=== PATIENT | female | born 1950 | race Hispanic/Latino ===

== ENCOUNTER 2024-05-19 16:38 | Emergency (ER) | payer MEDICARE, OTHER ==
[~2024-05-19] VITALS: Ht 160 cm; Wt 90.7 kg
--- NOTE | 2024-05-19 16:53 | ERN ---
ED Note History of Present Illness Stated Complaint: LT ANKLE INJURY AND PAIN Chief Complaint: Ankle Problem Time Seen by MD: 16:42 Dictation: PATIENT IS A 74-YEAR-OLD FEMALE HERE WITH COMPLAINTS OF LEFT ANKLE AND FOOT PAIN STATUS POST A SLIP FALL OFF THE 2ND STEP OF A LADDER THIS MORNING. SHE STATES SHE HAD A MIRROR SLIP NO BLOOD THINNERS NO HEAD INJURY NO LOC NO TRAUMA ALERT CRITERIA. SHE IS CURRENTLY ON A SCOOTER AND HAS A SPLINT IN PLACE TO THE LEFT ANKLE THAT SHE BOUGHT [id number]. SHE STATES SHE HAS TAKEN TYLENOL ONLY FOR PAIN. NO OTHER COMPLAINTS OF VOICE. Allergies: Coded Allergies: No Known Allergies (Unverified Allergy, Unknown, 05/19/24) Past Medical History Past Medical History: High Cholesterol, Hypertension Surgical History: Other History: Not Applicable RN Note Reviewed/Agreed w/PFSH: Yes Review of System Dictation CONSTITUTIONAL: NEGATIVE EXCEPT FOR HPI HEAD/FACE: NEGATIVE EXCEPT FOR HPI EENT: NEGATIVE EXCEPT FOR HPI RESPIRATORY: NEGATIVE EXCEPT FOR HPI GASTROINTESTINAL/ABDOMINAL: NEGATIVE EXCEPT FOR HPI GENITOURINARY: NEGATIVE EXCEPT FOR HPI MUSCULOSKELETAL: NEGATIVE EXCEPT FOR HPI LEFT ANKLE AND FOOT PAIN INTEGUMENTARY: NEGATIVE EXCEPT FOR HPI NEUROLOGICAL/PSYCH: NEGATIVE EXCEPT FOR HPI HEMATOLOGIC/LYMPHATIC: NEGATIVE EXCEPT FOR HPI ALL SYSTEMS NEGATIVE, EXCEPT NOTED ABOVE. 13 POINT REVIEW OF SYSTEMS ASSESSED AND ALL NEGATIVE EXCEPT FOR ABOVE. Initial Vital Sign VS Vital Signs Date Time Temp Pulse Resp B/P (MAP) Pulse Ox O2 Delivery O2 Flow Rate FiO2 05/19/24 16:39 97.9 71 20 164/74 99 Room Air Physical Exam Dictation VITAL SIGNS REVIEWED GENERAL APPEARANCE: ALERT, ORIENTED X 3, MODERATE ACUTE DISTRESS, WELL DEVELOPED, NOURISHED. HEAD AND FACE: NON-TRAUMATIC. EYES: PERRL, PINK CONJUNCTIVAS, EYELID NO TRAUMA, ANTERIOR CHAMBER WITH ARCUS SENILIS. EARS: PINNAS INTACT AND NO SIGNS OF TRAUMA OR ERYTHEMA EAR CANALS CLEAR AND NO DISCHARGE TM NO ERYTHEMA NOSE: NO DISCHARGE, NO BLEEDING. OROPHARYNX: MOUTH NORMAL, TONGUE PINK, PHARYNX CLEAR,NO ERYTHEMA, TONSILS NO EXUDATES, NO ABSCESSES NOTED, MUCOUS MEMBRANE MOIST NECK: SUPPLE, NON-TENDER, NO THYROMEGALY, NO MASSES, NO JVD, NO BRUITS BREAST:DEFERRED CHEST:NO TENDERNESS, NO CREPITUS, NO PARADOXICAL MOVEMENT, NO RETRACTIONS LUNGS:CLEAR, WELL-VENTILATED, SYMMETRIC, NO RALES, NO WHEEZING, NO RHONCHI, NO STRIDOR, GOOD BREATH SOUNDS BILATERALLY HEART: REGULAR RATE, REGULAR RHYTHM, NO MURMUR, NO GALLOPS VASCULAR: NO PERIPHERAL EDEMA, ABDOMEN: SOFT, POSITIVE BOWEL SOUNDS, NONDISTENDED, NO GUARDING, NONTENDER, NO REBOUND, NO MASSES NO HEPATOMEGALY, NO SPLENOMEGALY, NO SEAY'S SIGN, NO HERNIAS. RECTAL: DEFERRED GENITAL: DEFERRED NEUROLOGICAL: NORMAL SPEECH, MOTOR FUNCTION INTACT, SENSORY FUNCTION INTACT MUSCULOSKELETAL: NECK NONTENDER, FULL RANGE OF MOTION, BACK NONTENDER, FULL RANGE OF MOTION, EXTREMITIES DIFFUSE LEFT ANKLE TENDERNESS WITH MILD SWELLING LATERALLY. ALSO TENDERNESS TO DORSUM OF LEFT FOOT SKIN IS INTACT NO HIP PAIN SKIN: COLOR PINK, DRY, NO TURGOR, NO RASH, NO LACERATIONS, NO ABRASIONS, NO CONTUSIONS. LYMPHATIC: DEFERRED Results (Laboratory/Radiology) Laboratory/Radiology 1815/left foot x-ray negative Labs Reviewed?: Yes ED Course ED Course Orders Procedure Category Date Status Time Foot Comp 3+Vws Lt RAD 05/19/24 Resulted 16:50 Ankle Comp 3vws Lt RAD 05/19/24 Resulted 16:50 Apply Ice Pack To: CPOE 05/19/24 Transmitted (Er) 16:50 Acetaminophen With PHA 05/19/24 Complete Codeine (Tylenol-Code 17:00 Posterior Ankle Splint JORI.ER 05/19/24 In Process 18:19 Current Medications Medications (Trade) Dose Ordered Sig/Jasen Route PRN Reason Start Time Stop Time Status Last Admin Dose Admin Acetaminophen/ Codeine Phosphate (TYLenol-coDEINE TAB) 2 tab ONCE ONCE PO 05/19/24 17:00 05/19/24 17:01 DC 05/19/24 17:29 Vital Signs Date Time Temp Pulse Resp B/P (MAP) Pulse Ox O2 Delivery O2 Flow Rate FiO2 05/19/24 16:39 97.9 71 20 164/74 99 Room Air 1820, posterior splint placed by tech, distal neurovascular CMS intact post placement Medical Decision Making MDM Medical decision-making based on x-ray of left foot and ankle All x-rays negative Posterior short-leg splint placed to left ankle due to sprain Patient has a scooter she is using the belongs to Her. Discharged home with Tylenol with codeine told to her orthopedic surgeon next 2-3 days Provided the name of Dr. Louis DX & DISP Disposition: Discharge Departure Impression: Primary Impression: Contusion of left foot, initial encounter Additional Impressions: Sprain of left ankle, Fall from ladder Condition: Stable Scripts Ibuprofen (Ibuprofen 800 mg Tab) 800 Mg Tab 800 MG PO Q8H PRN for fever or pain, #30 TAB 0 Refills Prov: DON HDEZ NP 05/19/24 Additional Instructions: FOLLOW-UP WITH PRIMARY CARE PROVIDER IN 1 TO 2 DAYS. TAKE MEDICATIONS DIRECTED HERE IN THE EMERGENCY ROOM. OKAY TO CONTINUE HOME MEDICATIONS UNLESS OTHERWISE DISCUSSED DURING YOUR VISIT IN THE EMERGENCY ROOM TODAY. RETURN TO YOUR NEAREST EMERGENCY ROOM IF SYMPTOMS WORSEN OR IF THERE IS NO IMPROVEMENT. CALL 911 IF YOU NEED IMMEDIATE ASSISTANCE. TAKE TYLENOL OR MOTRIN [id number] NEEDED AND IF NO CONTRAINDICATIONS ARE PRESENT. INCREASE ORAL HYDRATION. A WOUND CULTURE OR URINE CULTURE WAS ORDERED HERE IN THE EMERGENCY ROOM DEPARTMENT PLEASE FOLLOW-UP WITH PRIMARY CARE PROVIDER AND ADVISE THEM TO GET REPEAT PORTS FROM OUR FACILITY. IF YOU HAD ANY MICHAEL WRAP/SPLINTS THAT WERE APPLIED HERE, PLEASE DO NOT REMOVE THEM UNTIL YOU SEE YOUR PRIMARY CARE OR SPECIALTY. SPLINT AND NO WEIGHT-BEARING TO LEFT ANKLE UNTIL CLEARED BY ORTHOPEDIC SURGEON, CALL FOR AN APPOINTMENT ON WEDNESDAY. APPLY COOL COMPRESSES TO PAIN THREE TO 4 TIMES A DAY. Referrals: SELF,REFERRAL (PCP) ERIN LOUIS DO Time of Disposition: 18:21 I have reviewed the case, and I agree with, Diagnosis and Plan DON HDEZ NP May 19, 2024 16:53
[2024-05-19] MEDS: acetaMINOPHEN WITH coDEINE 1 TAB TAB PO ONE (17:29)
--- NOTE | 2024-05-19 18:49 | HMCIMG ---
Exam Type: FOOT COMP 3+VWS LT, ANKLE COMP 3VWS LT Clinical Information: LEFT DORSAL FOOT PAIN STATUS POST FALL FROM LADDER THIS MORNING Comparison: None Findings: Routine views of the ankle reveal no evidence of acute fracture or dislocation. The ankle mortise is intact. There is soft tissue swelling over the lateral malleolus consistent with inversion injury. The foot shows no acute pathology other macias. Calcaneal spurs are seen. IMPRESSION: Evidence of inversion injury.
[2024-05-19] MEDS ORDERED: IBUP-2077 PO (19:09)
[2024-05-19 19:10] VITALS: BP 157/74; PULSE 72; RESP 18; TEMP 97.9; O2SAT 99
== END 2024-05-19 19:26 | disposition home or self-care (01) ==
LOC: EDH 16:38
DX: S93.492A Sprain of other ligament of left ankle, initial encounter (principal); S90.32XA Contusion of left foot, initial encounter; E78.00 Pure hypercholesterolemia, unspecified; I10 Essential (primary) hypertension; Z98.890 Other specified postprocedural states; W11.XXXA Fall on and from ladder, initial encounter; Y93.89 Activity, other specified; Y92.89 Other specified places as the place of occurrence of the external cause; Y99.8 Other external cause status
CPT/HCPCS: 29515; 73610; 73630; 99284